=== PATIENT | female | born 2000 | race Asian ===

== ENCOUNTER 2021-03-29 19:13 | Emergency (ER) | payer OTHER ==
[2021-03-29 19:42] LABS: #Basophils 0.1 10x3/uL (0.0-0.2); #Eosinphils 0.3 10x3/uL (0.0-0.5); #Neutrophils 5.7 10x3/uL (1.5-8.4); %Basophils 0.5 % (0.0-2.0); %Eosinophils 2.6 % (0.0-6.0); %Monocytes 8.8 % (0.0-10.0); %Neutrophils 51.7 % (40.0-75.0); Hemoglobin 12.6 g/dL (12.0-15.5); Mean Corpuscular HGB CONC 32.6 g/dL (32.0-36.0); Mean Corpuscular Hemoglobin 27.2 pg (27.0-33.0); Mean Corpuscular Volume 83.4 fl (81.6-98.3); Platelet Count 425 10x3/uL (150-450); RBC Distribution Width 13.4 % (11.5-14.5); Red Blood Cell (RBC) Count 4.64 10x6/uL (3.90-5.03)
[2021-03-29 19:57] LABS: ALT (SGPT) 35 U/L (8-55); AST (SGOT) 32 U/L (5-34); Albumin 4.7 g/dL (3.5-5.0); Alkaline Phosphatase 79 U/L (40-110); Anion Gap 16 mmol/L (10-20); BUN (Urea Nitrogen) 7 mg/dL (7.0-18.7); Bilirubin, Total 0.2 mg/dL (0.2-1.2); Calc. Creatinine Clearance 0 mL/min (70-130); Carbon Dioxide 25 mmol/L (22-29); Chloride 102 mmol/L (98-107); Glucose 87 mg/dL (70-105); Potassium 4.1 mmol/L (3.5-5.1); Protein, Total 7.7 g/dL (6.0-8.3); Sodium 139 mmol/L (136-145)
== END 2021-03-29 21:04 | disposition home or self-care (01) ==
LOC: CSHERS 19:13
DX: I47.1 Supraventricular tachycardia (principal)
CPT/HCPCS: 80053; 84484; 85025; 93005

== ENCOUNTER → 2021-11-15 | Day surgery (SDC) | payer OTHER ==
[2021-11-15 08:30] LABS: SARS-CoV-2 NAA Rapid Test Not Detected (NotDetected)
== END ==
LOC: CSHER/OP 06:46
PROVIDERS: ATTEND Family Medicine
DX: Z20.822 Contact with and (suspected) exposure to COVID-19 (principal)
CPT/HCPCS: U0002

== ENCOUNTER 2022-09-09 17:21 | Observation (INO) | payer BC, OTHER ==
[2022-09-09] MEDS ORDERED: Adenosine 6 MG/2 ML VIAL ONE ×3 (17:40→17:56)
[2022-09-09] MEDS ORDERED: Ondansetron PF 4 MG/2 ML Vial ONE (17:50)
[2022-09-09 18:16] LABS: #Basophils 0.1 10x3/uL (0.0-0.2); #Eosinphils 0.1 10x3/uL (0.0-0.5); #Neutrophils 6.8 10x3/uL (1.5-8.4); %Basophils 0.7 % (0.0-2.0); %Eosinophils 0.7 % (0.0-6.0); %Lymphocytes 33.5 % (18.0-47.0); %Monocytes 8.1 % (0.0-10.0); %Neutrophils 56.8 % (40.0-75.0); Hemoglobin 13.1 g/dL (12.0-15.5); Mean Corpuscular HGB CONC 32.4 g/dL (32.0-36.0); Mean Corpuscular Hemoglobin 27.3 pg (27.0-33.0); Mean Corpuscular Volume 84.3 fl (81.6-98.3); Mean Platelet Volume 9.5 fl (7.4-10.4); Platelet Count 496 10x3/uL (150-450); Red Blood Cell (RBC) Count 4.79 10x6/uL (3.90-5.03)
[2022-09-09 18:21] LABS: BHCG - Serum Negative (NEGATIVE); Pregs Control Background? CLEAR/WHITE (CLR/WHITE); Pregs Control Bar Appear? YES (CONTROL BAR)
[2022-09-09 18:26] LABS: ALT (SGPT) 19 U/L (8-55); AST (SGOT) 17 U/L (5-34); Albumin 4.8 g/dL (3.5-5.0); Alkaline Phosphatase 74 U/L (40-110); Anion Gap 14 mmol/L (10-20); BUN (Urea Nitrogen) 9 mg/dL (7.0-18.7); Bilirubin, Total 0.5 mg/dL (0.2-1.2); Calc. Creatinine Clearance 0 mL/min (70-130); Calcium 10.2 mg/dL (7.8-10.44); Carbon Dioxide 28 mmol/L (22-29); Chloride 101 mmol/L (98-107); Estimated GFR 117; Globulin 3.2 g/dL (2.4-3.5); Glucose 98 mg/dL (70-105); Magnesium 1.9 mg/dL (1.6-2.6); Potassium 3.1 mmol/L (3.5-5.1); Sodium 140 mmol/L (136-145)
[2022-09-09 19:59] LABS: Troponin I Less than 0.010 ng/mL (< 0.028)
[2022-09-09] MEDS ORDERED: Guaifenesin DM 100-10/5 ML UDCUP PO PRN (20:22)
[2022-09-09] MEDS ORDERED: Acetaminophen 325 MG TAB PO PRN (20:22)
[2022-09-09] MEDS ORDERED: Zolpidem Tartrate 5 MG TAB PO PRN (20:22)
[2022-09-09] MEDS ORDERED: Calcium Carbonate 500 MG ChewTAB PO PRN (20:22)
[2022-09-09] MEDS ORDERED: Ondansetron PF 4 MG/2 ML Vial IVP PRN (20:22)
[2022-09-09] MEDS ORDERED: Diltiazem 125 MG in Sodium Chloride 0.9% 100 ML IVPB SCH (20:30)
[2022-09-09 20:32] VITALS: BMI 22.4
[2022-09-09] MEDS ORDERED: Potassium Chloride 20 MEQ TAB PO SCH (20:45)
[2022-09-09] MEDS ORDERED: Metoprolol Tartrate 25 MG TAB PO SCH (20:45)
[2022-09-09] MEDS ORDERED: Magnesium Sulfate/D5W 1 GM/100 ML BAG IVPB SCH (20:45)
[2022-09-10 03:17] LABS: SARS-CoV-2 NAA Rapid Test Not Detected (NotDetected)
[2022-09-10 05:10] LABS: #Basophils 0.1 10x3/uL (0.0-0.2); #Eosinphils 0.2 10x3/uL (0.0-0.5); #Monocytes 0.7 10x3/uL (0.0-1.1); #Neutrophils 3.7 10x3/uL (1.5-8.4); %Basophils 0.8 % (0.0-2.0); %Eosinophils 1.8 % (0.0-6.0); %Lymphocytes 44.5 % (18.0-47.0); %Monocytes 8.7 % (0.0-10.0); Hemoglobin 10.8 g/dL (12.0-15.5); Mean Corpuscular HGB CONC 32.4 g/dL (32.0-36.0); Mean Corpuscular Hemoglobin 27.6 pg (27.0-33.0); Mean Corpuscular Volume 84.9 fl (81.6-98.3); Mean Platelet Volume 9.6 fl (7.4-10.4); Platelet Count 367 10x3/uL (150-450); RBC Distribution Width 14.3 % (11.5-14.5); Red Blood Cell (RBC) Count 3.92 10x6/uL (3.90-5.03); White Blood Cell (WBC) Count 8.5 10x3/uL (3.5-10.5)
[2022-09-10 05:22] LABS: Anion Gap 9 mmol/L (10-20); BUN (Urea Nitrogen) 6 mg/dL (7.0-18.7); Calc. Creatinine Clearance 122 mL/min (70-130); Calcium 8.7 mg/dL (7.8-10.44); Carbon Dioxide 26 mmol/L (22-29); Chloride 110 mmol/L (98-107); Estimated GFR 126; Glucose 94 mg/dL (70-105); Magnesium 2.2 mg/dL (1.6-2.6); Potassium 4.1 mmol/L (3.5-5.1); Sodium 141 mmol/L (136-145)
[2022-09-10] MEDS ORDERED: Fludrocortisone Acetate 0.1 MG TAB PO SCH (09:00)
[2022-09-10 11:21] VITALS: BP 111/69; TEMP 98.1
== END 2022-09-10 13:28 | disposition home or self-care (01) ==
LOC: CSHERS 17:21 → INTOOBSV 20:21 → CSHTELE 20:21
PROVIDERS: ADMIT Student in an Organized Health Care Education/Training Program; ATTEND Internal Medicine
DX: I47.1 Supraventricular tachycardia (principal); R55 Syncope and collapse; E87.6 Hypokalemia; Z79.899 Other long term (current) drug therapy; Z20.822 Contact with and (suspected) exposure to COVID-19
CPT/HCPCS: 36415; 80048; 80053; 83735; 84443; 84484; 84703; 85025; 93005; 93010; 96365; 96366; 96375; 96376; G0378; J0153; J2405; J3475; U0002

== ENCOUNTER 2024-06-29 18:18 | Emergency (ER) | payer BC, OTHER ==
[2024-06-29] MEDS ORDERED: Ondansetron PF 4 MG/2 ML Vial ONE (19:36)
[2024-06-29] MEDS ORDERED: Dicyclomine 20 MG/2 ML VIAL ONE (19:37)
[2024-06-29 19:46] LABS: BHCG - Serum Negative (NEGATIVE); Pregs Control Background? CLEAR/WHITE (CLR/WHITE); Pregs Control Bar Appear? YES (CONTROL BAR)
[2024-06-29 19:49] LABS: #Basophils 0.04 10x3/uL (0.0-0.2); #Eosinphils 0.02 10x3/uL (0.0-0.5); #Monocytes 0.66 10x3/uL (0.0-1.1); #Neutrophils 8.11 10x3/uL (1.5-8.4); %Basophils 0.4 % (0.0-2.0); %Eosinophils 0.2 % (0.0-6.0); %Lymphocytes 14.6 % (18.0-47.0); %Monocytes 6.4 % (0.0-10.0); %Neutrophils 78.2 % (40.0-75.0); Hematocrit 43.8 % (34.9-44.5); Hemoglobin 14.8 g/dL (12.0-15.5); Mean Corpuscular HGB CONC 33.8 g/dL (32.0-36.0); Mean Corpuscular Hemoglobin 29.7 pg (27.0-33.0); Mean Corpuscular Volume 87.8 fL (81.6-98.3); Mean Platelet Volume 9.2 fL (7.4-10.4); Platelet Count 379 10x3/uL (150-450); RBC Distribution Width 12.4 % (11.5-14.5); Red Blood Cell (RBC) Count 4.99 10x6/uL (3.90-5.03); White Blood Cell (WBC) Count 10.4 10x3/uL (3.5-10.5)
[2024-06-29 19:55] LABS: ALT (SGPT) 23 U/L (8-55); AST (SGOT) 18 U/L (5-34); Alkaline Phosphatase 78 U/L (40-110); Anion Gap 17 mmol/L (10-20); BUN (Urea Nitrogen) 11 mg/dL (7.0-18.7); Calc. Creatinine Clearance 0 mL/min (70-130); Calcium 10.5 mg/dL (7.8-10.44); Carbon Dioxide 23 mmol/L (22-29); Chloride 103 mmol/L (98-107); Estimated GFR 110; Globulin 3.8 g/dL (2.4-3.5); Glucose 76 mg/dL (70-105); Lipase 21 U/L (8-78); Potassium 3.7 mmol/L (3.5-5.1); Protein, Total 8.8 g/dL (6.0-8.3); Sodium 139 mmol/L (136-145)
== END 2024-06-29 21:24 | disposition home or self-care (01) ==
LOC: CSHERS 18:18
DX: K31.84 Gastroparesis (principal)
CPT/HCPCS: 36416; 80053; 83690; 83735; 84703; 85025; 96374; J2405